=== PATIENT | male | born 1990 | race African-American/Black ===

== ENCOUNTER 2019-02-06 15:42 | Emergency (ER) | payer SELFPAY ==
[~2019-02-06] VITALS: Ht 177.8 cm; Wt 88.6 kg
[2019-02-06] MEDS ORDERED: ANTIDEPRESSANTS PO (16:02)
[2019-02-06] MEDS ORDERED: [UNRECOGNIZED DRUG - OTHER] PO (16:02)
[2019-02-06] MEDS ORDERED: KETOROLAC TROMETHAMINE 10 MG TABLET PO ONE (18:45)
[2019-02-06] MEDS ORDERED: POVIDONE-IODINE 10% 15 ML SOLUTION UD TP ONE (18:45)
[2019-02-06] MEDS ORDERED: RABIES IMMUNE GLOBULIN/PF 300 UNITS/ML 5 ML VIAL IM ONE (18:45)
[2019-02-06] MEDS ORDERED: RABIES VAC,PF CHICK-EMB CELL 2.5 UNITS/ML SYRINGE IM ONE (19:00)
[2019-02-06 20:44] VITALS: BP 128/67
== END 2019-02-06 20:45 | disposition home or self-care (01) ==
LOC: EMS 15:44
DX: S81.831A Puncture wound without foreign body, right lower leg, initial encounter (principal); F32.9 Major depressive disorder, single episode, unspecified; W54.0XXA Bitten by dog, initial encounter; Y93.89 Activity, other specified; Y92.89 Other specified places as the place of occurrence of the external cause; Y99.8 Other external cause status
CPT/HCPCS: 90375; 90471; 90472; 90675